=== PATIENT | male | born 1985 | race Caucasian/White ===

== ENCOUNTER 2021-09-29 00:14 | Emergency (ER) | payer MEDICAID ==
[~2021-09-29] VITALS: Ht 177.8 cm; Wt 104.5 kg
[2021-09-29 00:16] VITALS: BP 159/92
[2021-09-29] MEDS ORDERED: dexamethasone 4mg tablet PO ONE (00:30)
== END 2021-09-29 00:46 | disposition home or self-care (01) ==
LOC: ER 00:14
DX: J20.9 Acute bronchitis, unspecified (principal); U09.9 Post COVID-19 condition, unspecified; F32.A Depression, unspecified; Z59.00 Homelessness unspecified; Z72.89 Other problems related to lifestyle
CPT/HCPCS: 99283